=== PATIENT | female | born 1990 | race Caucasian/White ===

== ENCOUNTER 2022-12-01 02:26 | Emergency (ER) | payer MEDICAID, SELFPAY ==
[2022-12-01 02:40] VITALS: BP 114/78; PULSE 86; RESP 18; TEMP 36.6; O2SAT 99
--- NOTE | 2022-12-01 03:06 | ED.GENADULT ---
HPI - General Adult General Chief complaint: Vaginal Bleeding Stated complaint: Vaginal bleeding. Time Seen by Provider: 12/01/22 02:40 Source: patient and design cell engineer Mode of arrival: ambulatory History of Present Illness HPI narrative: 31-year-old female 3 para 2 with 2 prior C-sections presents to the emergency department for evaluation of vaginal bleeding. She believes herself to be about 6 weeks , has not had a regular menstrual cycle since her Nexplanon was removed in September. Took a test 1 month ago that was positive. Has a very mild amount of lower uterine cramping, very light vaginal bleeding. No blood clots, no passed tissue. Has not taken any medication to help with her symptoms. No dysuria, no fever. No prior history of miscarriages, no use of anticoagulants. Denies trauma or injury. Past medical history notable for 2 prior C-sections, 1 in [place], 1 from 2019 that is reviewed in our records. Blood type B positive. ROS notable for the gynecological symptoms only, otherwise denies times 12 systems. Related Data Home Medications Medication Instructions Recorded Confirmed docosahexaenoic acid 200 mg 200 mg PO DAILY 12/01/22 12/01/22 capsule ( DHA) Allergies Allergy/AdvReac Type Severity Reaction Status Date / Time No Known Drug Allergies Allergy Verified 09/24/22 14:47 PFSH PFSH Surgical History History of 2 sections ?Z98.891 - History of uterine scar from previous surgery (ICD-10) Family History Mother Diabetes Social History Narrative: Homemaker, 2 children. Smoking Status: Never smoker Do you use any of these nicotine containing products: None How often do you have a drink containing alcohol: never AUDIT-C Alcohol total score: 0 Non-prescribed substance use: denies use Little interest or pleasure in doing things: not at all Feeling down, depressed, or hopeless: not at all Exam Const: Vital Signs, click to edit/add: Vital Signs - 24 hr 12/01/22 02:40 12/01/22 03:47 Temperature 97.9 F Pulse Rate [Right Pulse Oximeter] 86 70 Respiratory Rate 18 16 Blood Pressure [Le ft Upper Arm] 114/78 116/76 Pulse Oximetry 99 99 Oxygen Delivery Me thod Room Air Room Air Documenting provider has reviewed patient's vital signs: yes Common normals: no apparent distress General appearance: cooperative, comfortable and well kempt HENMT: Common normals: normocephalic and head/scalp atraumatic Head and scalp: normocephalic and atraumatic Mouth: oral and palatal mucosa normal Eye: Common normals: conjunctivae normal General eye: normal appearance of both eyes Conjunctiva: conjunctiva(e) normal Resp: Common normals: normal respiratory effort, no use of accessory muscles and clear to auscultation bilaterally Effort & inspection: able to speak in complete sentences Auscultation: clear to auscultation bilaterally Cardio: Common normals: regular rate, regular rhythm, S1 normal heart sound, S2 normal heart sound and no murmurs Rate: regular rate Rhythm: regular rhythm Heart sounds: S1 normal and S2 normal GI: Common normals: Normal to inspection, nondistended, normoactive bowel sounds present, soft to palpation, non-tender, no hepatosplenomegaly and no masses Palpation: soft and no hepatosplenomegaly : Other: Normal external genitalia. Cervix multiparous in appearance but closed, scant amount of very lightly blood-tinged mucus, no active bleeding. Extremity: Common normals: normal to inspection and no pedal edema Psych: Appearance: well kempt Activity/motor behavior: appropriate eye contact Mood and affect: euthymic mood Course Course Hospital Course: No signs of cortical hemorrhage. Differential diagnosis including normal , implantation bleeding, STI, miscarriage, threatened miscarriage, among others. Patient has upcoming OB appointment in 9 days. Blood type B positive. Would not require RhoGAM. Bedside ultrasound used to attempt to locate an intrauterine . There is a significant amount of scar tissue that makes this difficult to see, I do see what appears to be a gestational sac within the low of the uterus but cannot determine a pole. Body habitus also makes this a bit difficult. Recommended checking a quant level. If it is above 1500 a really should be able to see contents better than will order a formal ultrasound. If below 1500, since she has no peritoneal signs, no heavy bleeding or severe pain, can arrange outpatient serial HCG and/or ultrasound. Reevaluation(s) Time of Reevaluation #1: 04:29 Reevaluation #1: Patient remains asymptomatic, brief period of cramping prior to presentation to ED has resolved. No further bleeding. Discussed hCG level, nice and high, this is not fully reassuring. Reminded her that this cannot rule out miscarriage. She will need a formal ultrasound performed. The information services tech would need to be called in from home, it takes about an hour to do the scan and another hour to get the results, this would likely take about 2-3 more hours here tonight. She agrees that she can go home and will come back of her symptoms worsen and she can arrange the ultrasound outpatient. I agree that this is perfectly safe and reasonable in her case. She will call her Ob provider in the morning and arrange outpatient ultrasound. The provider can choose to do serial hCG levels based on the findings at their discretion. Patient verbalizes understanding and agreement and understanding of alarm symptoms that were extensively reviewed with use of design cell engineer over the phone. Vital Signs Vital signs: Initial Vital Signs Temperature 97.9 F 12/01/22 02:40 Temperature Source Temporal Artery Scan 12/01/22 02:40 Pulse Rate 86 12/01/22 02:40 Pulse Rhythm Regular 12/01/22 02:40 Respiratory Rate 18 12/01/22 02:40 Blood Pressure 114/78 12/01/22 02:40 Blood Pressure Mean 90 12/01/22 02:40 Blood Pressure Position Sitting 12/01/22 02:40 Pulse Oximetry 99 12/01/22 02:40 Oxygen Delivery Method Room Air 12/01/22 02:40 Vital Signs Temperature 97.9 F 12/01/22 02:40 Pulse Rate 86 12/01/22 02:40 Respiratory Rate 18 12/01/22 02:40 Blood Pressure 114/78 12/01/22 02:40 Pulse Oximetry 99 12/01/22 02:40 Oxygen Delivery Method Room Air 12/01/22 02:40 Temperature 97.9 F 12/01/22 02:40 Pulse Rate 70 12/01/22 03:47 Respiratory Rate 16 12/01/22 03:47 Blood Pressure 116/76 12/01/22 03:47 Pulse Oximetry 99 12/01/22 03:47 Oxygen Delivery Method Room Air 12/01/22 03:47 Medical Decision Making Lab Data Lab results reviewed: Yes I reviewed the patient's lab results Lab results narrative: Blood type B positive from prior records. Nice and high hCG level. Labs: Lab Results 12/01/22 Range/Units 03:15 Hgb 11.9 L (12.0-16.0) gm/dL HCG, Quant 47060.00 mIU/mL Discharge Plan Discharge Clinical Impression: Threatened Patient Disposition: Home, Self-Care Condition: Stable Instructions: Threatened Miscarriage (ED) Additional Instructions: As we discussed, there are no signs of dangerous bleeding here in the emergency department. Your hormone levels are nice and high, your cervix is closed. These are all somewhat reassuring. As we discussed, we would need to do a formal ultrasound in order to see the better. I was not able to adequately see things on the bedside ultrasound tonight. As we discussed, we do not have an information services tech in-house overnight. Together, you agreed that you would not want to wait for her to be called in from home, have the test and wait an additional hour for it to be read. I agree. You are not having any severe pain or symptoms that would be worrisome for an ectopic . Remember the warning symptoms of severe bleeding, severe pain that would warrant coming back to the emergency department. Call your Ob provider in the morning and let her know that you are seen for bleeding in the emergency room. My recommendation is that they arrange an outpatient ultrasound and consider doing repeat blood work based on the ultrasound findings. Your Ob provider will make the final decisions regarding the next steps in her management. It is certainly reasonable to not wait several more hours for this ultrasound tonight. [place] comentamos, no hay signos de sangrado peligroso aqu? en el departamento de emergencias. Fay niveles de hormonas del embarazo son agradables y altos, daly americo uterino est? cerrado. Todos estos son algo tranquilizadores. [place] comentamos, necesitar?pardeep hacer navi ecograf?a formal para poder brandon mejor el embarazo. No pude brandon adecuadamente las cosas en el ultrasonido de la cama esta noche. [place] comentamos, no tenemos un t?cnico de ultrasonido interno de la noche a la ma?destini. Juntos acordaron que no querr?an esperar a que la llamaran de daly casa, hacerse la prueba y esperar navi hora m?s para que la leyeran. Estoy de acuerdo. No tiene mary kate?n dolor intenso o s?ntomas que ser?an preocupantes para un embarazo ect?angi.Recuerde los s?ntomas de advertencia de sangrado intenso, dolor intenso que justificar?a regresar al departamento de emergencias. Llame a daly obstetra por la ma?destini y d?gale que lo atienden por sangrado en la ankit de emergencias. Mi recomendaci?n es que organicen navi ecograf?a ambulatoria y consideren repetir los an?lisis de carol en funci?n de los hallazgos de la ecograf?a. Daly proveedor de obstetricia monica? las decisiones finales con respecto a los pr?ximos pasos en daly manejo. Ciertamente es razonable no esperar varias horas m?s para esta ecograf?a esta noche. Activity Level: No Restrictions Discharge Diet: Regular Prescriptions: No Action DHA 200 mg capsule 200 mg PO DAILY Follow Up/Referrals: Provider,Not a Local [Referring] - Stand Alone Forms: [facility] Info Instructions
[2022-12-01 03:22] LABS: Hemoglobin* 11.9 gm/dL (12.0-16.0)
[2022-12-01 03:47] VITALS: BP 116/76; PULSE 70; RESP 16; O2SAT 99
[2022-12-01 04:34] VITALS: BP 113/71; PULSE 66; RESP 18; O2SAT 100
== END 2022-12-01 04:35 | disposition home or self-care (01) ==
PROVIDERS: Emergency Provider Family Medicine; PCP Physician Assistant
DX: O20.0 Threatened abortion (principal)
CPT/HCPCS: 36415; 84702; 85018; 99282; 99283

== ENCOUNTER 2022-12-02 10:06 | Outpatient (CLI) | payer MEDICAID, SELFPAY ==
--- NOTE | 2022-12-02 10:15 | CRLHL7_ITS ---
For Patients: As a result of the Century Cures Act, medical imaging exams and procedure reports are released immediately into your electronic medical record. You may view this report before your referring provider. If you have questions, please contact your health care provider. INDICATION: 31 year-old female. The last menstrual period is not known. First trimester bleeding and cramping. Threatened . First trimester scan, establish dates. COMPARISON: None. TECHNIQUE: Real-time espino-scale imaging of the pelvis was performed. FINDINGS: Sonographic imaging demonstrates a single living intrauterine gestation. The embryo demonstrates a regular cardiac rate measuring 112 beats per minute. The embryo`s crown-rump length measurement of 0.4 cm corresponds to a gestational age of 6 weeks 1 day with a sonographic due date of July 27, 2022. There is a normal-appearing yolk sac measuring 2 mm. There are no gross abnormalities noted within the embryo at this early state of development. The placenta has not yet developed. The gestational sac has a normal appearance and there is no evidence of a perigestational hemorrhage. Specifically there is no evidence for subchorionic hemorrhage. The amount of fluid within the sac appears appropriate for gestational age. The cervix is closed. The myometrium appears normal. The ovaries are of normal size. The right ovary measures 2.9 x 2.2 x 2.8 cm. The right ovary contains a small corpus luteum cyst of measuring 1.8 x 1.4 x 1.6 cm. The left ovary measures 2.5 x 1.5 x 1.7 cm. There are no suspicious fluid collections noted in the cul-de-sac. IMPRESSION: Normal first trimester OB ultrasound exam. Gestational age calculated at 6 weeks 1 day with a sonographic due date of July 27, 2022. No evidence for subchorionic hemorrhage. Dictated by German Goodman MD @ 12/02/2022 11:13:23 AM (Electronically Signed)
== END 2022-12-02 10:07 | disposition home or self-care (01) ==
LOC: US 10:07
PROVIDERS: Visit Provider Registered Nurse
DX: O20.0 Threatened abortion (principal)
CPT/HCPCS: 76817; T1013

== ENCOUNTER 2022-12-02 12:21 | Outpatient (CLI) | payer MEDICAID, SELFPAY ==
[2022-12-02 17:51] LABS: Chlamydia DNA Amplified* NOT DETECTED (No Detected); GC DNA Amplified* NOT DETECTED (No Detected)
== END 2022-12-02 12:22 | disposition home or self-care (01) ==
PROVIDERS: Visit Provider Registered Nurse
DX: O20.9 Hemorrhage in early pregnancy, unspecified (principal)
CPT/HCPCS: 86592; 86703; 86762; 86787; 86803; 86850; 86900; 86901; 87086; 87340; 87491; 87591

== ENCOUNTER 2022-12-10 12:54 | Outpatient (CLI) | payer MEDICAID, SELFPAY ==
--- NOTE | 2022-12-10 13:00 | CRLHL7_ITS ---
For Patients: As a result of the Century Cures Act, medical imaging exams and procedure reports are released immediately into your electronic medical record. You may view this report before your referring provider. If you have questions, please contact your health care provider. INDICATION: Follow up viability COMPARISON: 12/02/2022 TECHNIQUE: Real-time espino-scale imaging of the pelvis was performed. FINDINGS: Sonographic imaging demonstrates a single living intrauterine gestation. The embryo demonstrates a regular cardiac rate measuring 149 beats per minute. The embryo`s crown-rump length measurement of 1.4 cm corresponds to a gestational age of 7 weeks 5 days with a sonographic due date of 07/24/2022. There is a normal-appearing yolk sac. There are no gross abnormalities noted within the embryo at this early state of development. The gestational sac has a normal appearance. There is no evidence of a perigestational hemorrhage. The amount of fluid within the sac appears appropriate for gestational age. The cervix is closed. The myometrium appears normal. Normal left ovary. A hypoechoic corpus luteal cyst right ovary measuring 3.3 cm. There are no suspicious fluid collections noted in the cul-de-sac. IMPRESSION: Single living intrauterine with sonographic gestational age 7 weeks 5 days and sonographic due date 07/24/2022. Dictated by Ezra Sidhu MD @ 12/10/2022 2:21:36 PM (Electronically Signed)
== END 2022-12-10 12:55 | disposition home or self-care (01) ==
LOC: US 12:55
PROVIDERS: Visit Provider Physician Assistant
DX: Z34.91 Encounter for supervision of normal pregnancy, unspecified, first trimester (principal); Z3A.01 Less than 8 weeks gestation of pregnancy
CPT/HCPCS: 76817; T1013

== ENCOUNTER 2023-03-10 07:12 | Outpatient (CLI) | payer MEDICAID, SELFPAY ==
--- NOTE | 2023-03-10 07:15 | CRLHL7_ITS ---
For Patients: As a result of the Century Cures Act, medical imaging exams and procedure reports are released immediately into your electronic medical record. You may view this report before your referring provider. If you have questions, please contact your health care provider. INDICATION: Evaluate anatomy. COMPARISON: 12/10/2022 TECHNIQUE: Real time espino scale imaging of the fetus was performed as well as color Doppler analysis of the umbilical vessels. FINDINGS: Sonographic imaging demonstrates a single living intrauterine gestation. Fetus demonstrates a regular cardiac rate of 148 beats per minute. Fetus has a variable position. The placenta lies fundal posterior without evidence of placenta previa. The edge of the placenta is located 9.1 cm from the internal cervical os. Amniotic fluid volume appears normal. Single deepest vertical pocket: 6.2 cm. The cervix is closed and measures 3.5 cm in length. The composite ultrasound gestational age is calculated at 20 weeks 6 days with an estimated sonographic due date of 07/22/2023. The estimated weight is 379 grams which lies at the 82nd %. The following biometric measurements were obtained: Biparietal diameter: 5.0 cm/21 weeks 1 day 87th% Head circumference: 18.1 cm/20 weeks 4 days 61st% Abdominal circumference: 16.0 cm/21 weeks 1 day 75th% Femur length: 3.4 cm/20 weeks 3 days 56th% The HC/AC ratio measures: 1.13 range (1.06-1.25) On anatomic survey, there is a normal appearance of the cerebral ventricles, cavum septi pellucidi, cisterna magna and cerebellum. The nose, lips, and facial profile appear normal. The cervical, thoracic and lumbar spine are well visualized and appear normal. There is a normal four-chamber heart view and the left and right ventricular outflow tracts appear normal. The diaphragm and stomach appear normal. The kidneys and bladder also appear normal. There is a normal three-vessel cord and cord insertion site. The four extremities appear normal. IMPRESSION: Normal OB ultrasound exam with concordance of clinical and sonographic dating. No intrinsic abnormalities noted on anatomic survey. Dictated by Ezra Sidhu MD @ 03/10/2023 10:10:38 AM (Electronically Signed)
== END 2023-03-10 07:13 | disposition home or self-care (01) ==
PROVIDERS: Visit Provider Physician Assistant
DX: Z34.92 Encounter for supervision of normal pregnancy, unspecified, second trimester (principal); Z3A.20 20 weeks gestation of pregnancy
CPT/HCPCS: 76805; T1013

== ENCOUNTER 2023-05-05 12:29 | Outpatient (CLI) | payer MEDICAID, SELFPAY | END 2023-05-05 12:30 | disposition home or self-care (01) | LOC: NFLDREF 05-09 06:11 | PROVIDERS: Visit Provider Obstetrics & Gynecology | DX: Z34.90 Encounter for supervision of normal pregnancy, unspecified, unspecified trimester (principal) | CPT/HCPCS: 86592 ==

== ENCOUNTER 2023-06-01 10:00 | Outpatient (CLI) | payer MEDICAID, SELFPAY ==
--- NOTE | 2023-06-01 15:00 | PM.ANPROEV ---
PFSH PFS Medical History History of abnormal cervical Pap smear ?Z87.42 - Personal history of other diseases of the female genital tract (ICD-10) Surgical History History of 2 sections ?Z98.891 - History of uterine scar from previous surgery (ICD-10) Family History Mother Diabetes Social History Narrative: Homemaker, 2 children. Smoking Status: Never smoker Do you use any of these nicotine containing products: None How often do you have a drink containing alcohol: never AUDIT-C Alcohol total score: 0 Non-prescribed substance use: denies use Little interest or pleasure in doing things: not at all Feeling down, depressed, or hopeless: not at all Meds Home Medications and Allergies Home Medications Medication Instructions Recorded Confirmed Type docosahexaenoic acid 200 mg 200 mg PO DAILY 12/01/22 06/01/23 History capsule ( DHA) Allergies Allergy/AdvReac Type Severity Reaction Status Date / Time No Known Drug Allergies Allergy Verified 06/01/23 11:41 Focused Exam Airway Mallampti: II TM distance: <3 FB Other Findings Other Findings: landmarks difficult to palpate Assessment and Plan Assessment and plan (1) Obesity: Status: Acute (2) : Status: Acute Plan Third . No issues as of yet. Discussed spinal anesthetic and TAPS. No questions. No contraindication to delivery at this time
== END 2023-06-01 10:01 | disposition home or self-care (01) ==
PROVIDERS: Visit Provider Anesthesiology
DX: O99.213 Obesity complicating pregnancy, third trimester (principal); Z3A.32 32 weeks gestation of pregnancy
CPT/HCPCS: T1013

== ENCOUNTER 2023-06-01 10:18 | Outpatient (CLI) | payer MEDICAID, SELFPAY ==
--- NOTE | 2023-06-01 10:45 | CRLHL7_ITS ---
For Patients: As a result of the Century Cures Act, medical imaging exams and procedure reports are released immediately into your electronic medical record. You may view this report before your referring provider. If you have questions, please contact your health care provider. OB ULTRASOUND FOLLOWUP GROWTH 06/01/2023 JOANA by LMP: 07/27/2023. JOANA by GA: 32 w, 0d. INDICATION: Growth check due to obesity in . COMPARISON: 03/10/2023. CERVIX: Not visualized. POSITIONING: Vertex. AMNIOTIC FLUID: 5.8 cm. PLACENTA: Technique: Transabdominal. PLACENTA POSITION: Fundal. DOPPLER: heart rate: 152 bpm. Biometry: BPD: 7.8 cm. 31 w, 3d, 24 percent. HC: 29.3 cm. 32 w, 2 d, 21 percent. AC: 31.0 cm. 34 w, 6 d, >97 percent. FL: 6.0 cm. 31 w, 0 d, 15 percent. EFW: 2148 g. Weight: 4 lbs, 12 oz. age by this US: 32 w, 3 d. JOANA by this US: 07/24/2023. Percentile by JOANA: 79 percent. IMPRESSION: Single live intrauterine gestation at 32 weeks 3 days. JOANA 07/24/2023. Estimated weight is 2148 grams which lies at the 78th percentile. Sabine Galeano M.D. Diagnostic/Breast Radiologist [email or web address] Transcribed: 12:33 pm DW/Dictated by: Sabine Galeano MD @ 06/03/2023 11:32:00 AM (Electronically Signed)
== END 2023-06-01 10:19 | disposition home or self-care (01) ==
LOC: US 10:19
PROVIDERS: Visit Provider Obstetrics & Gynecology
DX: Z34.93 Encounter for supervision of normal pregnancy, unspecified, third trimester (principal); Z3A.32 32 weeks gestation of pregnancy
CPT/HCPCS: 76816; T1013

== ENCOUNTER 2023-06-15 12:10 | Outpatient (CLI) | payer MEDICAID, SELFPAY | END 2023-06-15 12:11 | disposition home or self-care (01) | LOC: NFLDREF 06-23 10:32 | PROVIDERS: Visit Provider Physician Assistant | DX: Z34.93 Encounter for supervision of normal pregnancy, unspecified, third trimester (principal); Z3A.34 34 weeks gestation of pregnancy | CPT/HCPCS: 82728 ==

== ENCOUNTER 2023-07-01 13:57 | Outpatient (CLI) | payer MEDICAID, SELFPAY ==
[2023-07-02 13:18] LABS: Strep B DNA Probe Negative (Negative)
[2023-07-02 23:52] LABS: Strep B Susceptibility Needed? No
== END 2023-07-01 13:58 | disposition home or self-care (01) ==
LOC: NFLDREF 13:57
PROVIDERS: Visit Provider Obstetrics & Gynecology
DX: Z34.93 Encounter for supervision of normal pregnancy, unspecified, third trimester (principal); Z3A.36 36 weeks gestation of pregnancy
CPT/HCPCS: 87081; 87653

== ENCOUNTER 2023-07-22 05:29 | Inpatient (IN) | payer MEDICAID, SELFPAY ==
[2023-07-22] VITALS (32 sets, daily range): BP systolic 88–137; BP diastolic 54–78; PULSE 44–80; RESP 16–20; TEMP 36.3–36.8; O2SAT 95–99; BMI 40.5
[2023-07-22] MEDS: LACTATED RINGERS 1000 ML 1,000 ML 500 ML IV (05:48)
[2023-07-22 05:54] LABS: Hemoglobin* 11.3 gm/dL (12.0-16.0)
--- NOTE | 2023-07-22 06:47 | W.PM.LDBA ---
Subjective History of Present Illness Narrative: Patient is being admitted to Labor and Delivery for repeat delivery. She is a 32 year old at 39 2/7 weeks gestation. Her full history and physical was dictated by Dr. HAMMOND on 07/09/23. Please see this for details. Specific Issues/Plans MD RTCS and tubal ligation-bilateral salpingectomy, requested 07/22/23 with CGM H&P by CGM on 07/09/23, needs heart and lungs at her 38th week visit-completed on 07/14/23 1. Obesity, BMI 39.1 -Hemoglobin A1c: 5.2% -Growth US at 32 weeks ordered: EFW 78%, AC >97% -Consider weekly testing starting at 36 weeks - orders place 06/15/23 -Anesthesia consult: 06/01/23 2. History of x2. Indication for the 1st was that baby got stuck and then last she had a failed TOLAC, arrest of descent. -Repeat and she desires tubal ligation: scheduled for:07/22/23 -Will need Federal consent signed: signed on 04/06/23 -She has vertical midline infraumbilical and Pfannenstiel. Will be using Pfannenstiel for this next . Flu shot: 04/06/23 TDAP: 05/19/23 Covid:05/05/23 RSV: 06/15/23 OB - Problem Based A/P Additional Plan (1) Previous section complicating : Status: Acute (2) : Status: Acute (3) Obesity: Status: Acute Plan Repeat section and bilateral salpingectomy. OB Result Labs Labs: Hgb today: 11.3mg/dL OB Exam Physical Exam Vital signs: Pulse BP 80 102/59 L 07/22/23 05:54 07/22/23 05:54 Detailed Labor and Delivery Exam Patient Gravid: Yes Fetus (Single) Amniotic Membrane Status: intact Heart Rate Baseline: 130 Monitor Accelerations: Present Monitor Decelerations: None Skilled Nursing Variability: Moderate (6-25)
[2023-07-22] MEDS: LACTATED RINGERS 1000 ML 1,000 ML 125 ML IV ×2 (07:40→11:53)
[2023-07-22] MEDS: CEFAZOLIN 2 GM INJ IVP (07:41)
[2023-07-22] MEDS: miSOPROStoL 800 MCG/4 TABLET PR (07:57)
--- NOTE | 2023-07-22 09:49 | P.OBPRC_ITS ---
OB Delivery Proc Additional Procedures Tubal Ligation at the time of : Yes Other: No Procedure Date of procedure: 07/22/23 Pre-op diagnosis: Previous section x2, desiring repeat, satisfied parity Post-op diagnosis: same Procedure Done: Global Will [facility] bill your pro fee for this procedure?: Yes Blood Loss Measurement Type: QBL (533mL) Bakri Used: No Urine Output Comment: Clear urine Surgeon: Patti Elias MD Video Game Script Writer: Anil Crenshaw Anesthesia Type: Spinal Findings: FINDINGS: Live-born female , cephalic presentation, Apgars 8 and 9 at 1 and 5 minutes respectively. weight 9 pounds 1 oz. Normal appearing uterus, tubes, and ovaries. Dense adhesions between fascia, rectus muscles, omentum, anterior peritoneum, lower uterine segment, bladder. Procedure Name: Repeat Low Transverse Section, Lysis of Adhesion, Bilateral Salpingecto my Procedure Description: PROCEDURE: After obtaining informed consent, the patient was taken to the operating room where spinal anesthesia was obtained and found to be adequate. She was prepared and draped in the normal sterile fashion in the dorsal supine position with a leftward tilt. A Pfannenstiel skin incision was made with a scalpel along the line of the patient's previous Pfannenstiel scar. This incision was carried down to the underlying layer of fascia with the scalpel. The fascia was incised in the midline and the incision extended laterally. The superior aspect of the fascial incision were grasped with Félix clamps, elevated and the underlying rectus muscles dissected off sharply and with electrocautery. This dissection took an increased amount of time given the dense adhesions. The rectus muscles were then in the midline. The adhesions between the bladder and lower uterine segment were taken down sharply with Metzenbaum scissors. The Stanton O retractor was then placed into the incision. The lower uterine segment was then incised in a transverse fashion with the scalpel. Upon entry into the uterus, clear amniotic fluid was noted. The uterine incision was extended cephalo caudally with blunt finger fractionation. The infant's head was delivered atraumatically, followed by the remainder of the infant's body. The nose and mouth were suctioned with the bulb suction. The cord was doubly clamped and cut, and the was handed off the field to [facility] for evaluation. The placenta was delivered spontaneously with umbilical cord traction and fundal massage. The uterus was cleared of all clots and debris. The uterine incision was reapproximated in a running locking fashion with a 0 Vicryl suture. The lower uterine segment was so thin that I was unable to make a second row on the hysterotomy and utilized Chromic 2-0 to oversaw raw edges noted to be bleeding in multiple figure of 8. This achieved hemostasis. The uterus was very boggy, but was noted not to be bleeding excessively. Uterine atony treated with IV Oxytocin, 1 dose of IM Methergine and 800mcg of rectal Cytotec. Small bleeding vessels from adhesion release site between lower uterine segment and bladder reflection. A figure of 8 with Chromic 2-0 was placed at one spot that was bleeding more profusely, hemostasis secured. Humphrey was also utilized at this are for further hemostasis. At this time I also asked for 1g of TXA to be given. The uterus was then exteriorized. Both fallopian tubes were identified to their fimbrial ends. Attention was 1st turned to the right fallopian tube which was elevated in its midsection and fimbrial end with 2 [place] clamps, the mesosalpinx was then clamped, coagulated and cut in a progressive manner up to cornual end utilizing handheld LigaSure device. Hemostasis secured. Same procedure was performed on the left side. Hemostasis secured and fallopian tubes sent to pathology. The uterus was returned to the abdomen. The gutters were inspected and cleared of blood clots. All instruments and retractors were removed. The anterior peritoneum was reapproximated in a running fashion with a 3-0 Vicryl suture. Bleeding noted to be more persistent and coming from intraperitoneum. The Vicryl suture was released and omental adhesion to the anterior abdominal wall was noted to have a bleeding vessel, decision made to release adhesion and remove omentum with bleeding vessel. Utilizing handheld LigaSure device the omentum was clamped, coagulated and cut. Hemostasis secured. There was bleeding identified coming from the right rectus muscle perforating vessels, and this was coagulated with interrupted stitches of Vicryl 3-0. Hemostasis secured. The subfascial tissues were carefully inspected and hemostasis assured. The fascia was reapproximated in a running fashion with a looped 0 PDS suture. The subcutaneous tissues were copiously irrigated. Hemostasis was assured. The subcutaneous fat layer was reapproximated with interrupted sutures of 3-0 Vicryl in multiple layers. The skin was closed in a subcuticular fashion with 4-0 Monocryl. Silver dressing applied and to be left in place for 1 week. The patient tolerated the procedure well. Sponge, lap, needle, and instrument counts were reported as correct x2. The patient was taken to the recovery room, awake, and in stable condition. She did receive 3 grams of IV Ancef preoperatively. Complications: None Pathology: specimen obtained, sent to pathology (Fallopian tubes) Surgery Debrief Performed: Yes Condition: stable Disposition: floor
--- NOTE | 2023-07-22 09:56 | P.NB_ITS ---
Nerve Block Nerve Block Time Seen by Provider: 09:44 Date Seen: 07/22/23 Type of block requested by surgeon for post-operative analgesia: TAP Side: bilateral Time out performed: Yes Verification of patient name: Yes Verification of date of : Yes Site marking: not applicable Name of person performing procedure: Padma Continuous monitoring Was continuous monitoring of O2 sat, B/P, monitoring manager, recorded every 15 minutes?: Yes Procedure Checklist: sterile prep and needles Ultrasound guided. Images saved: Yes Medications given in 5ml increments after negative aspiration: Marcaine %: 0.25 mL: 30 Needle gauge: 20 and Exparel mL: 10 Needle gauge: 20 Patient tolerated procedure well: Yes Block Charges Block Charge (with Pro Fee): TAP Bilateral Use of Ultrasound Machine for Block: Yes- US Guidance/pain block
--- NOTE | 2023-07-22 09:58 | W.ANESCHARGE ---
Anesthesia Charges Start Date/Time Anesthesia Start Date: 07/22/23 Anesthesia Start Time: 07:12 Stop Date/Time Anesthesia Stop Date: 07/22/23 Anesthesia Stop Time: 09:53
[2023-07-22] MEDS: SODIUM CHLORIDE 0.9 % (FLUSH) 10 ML SYRINGE IVF (15:31)
[2023-07-22] MEDS: KETOROLAC 30 MG/ML inj IVP ×2 (15:31→21:52)
[2023-07-22] MEDS: ENOXAPARIN 40 MG/0.4 ML INJ SUBCUT (21:51)
[2023-07-23] VITALS (12 sets, daily range): BP systolic 86–105; BP diastolic 61–71; PULSE 78–81; RESP 16–18; TEMP 36.6–36.9; O2SAT 95–98
[2023-07-23] MEDS: ACETAMINOPHEN 500 MG TABLET 1000 MG PO ×4 (00:11→18:00)
[2023-07-23] MEDS: KETOROLAC 30 MG/ML inj IVP ×3 (03:51→15:29)
--- NOTE | 2023-07-23 07:56 | PM.OBPNVD1 ---
Documented by User: Renetta Cash 07/23/23 08:11 OB - PN:Subj Subjective Date Seen: 07/23/23 Narrative: Eryn is a 32 y.o. who was admitted to [facility] for repeat C-S @ 39.2 wk. She had an uncomplicated with Bilateral Tubal Ligation.?She was awake in bed and reports feeling well.Pain is well controlled with current medications. ?She has no new complaints. ?She is breast feeding and supplementing with donor milk as her is not latching well.? Vitals have been stable.? She has remained afebrile.? Has a good appetite, is tolerating a general diet. ?She is voiding without difficulty.? She is passing gas? She is ambulating and denies any dizziness.? Has small amount of rubra lochia. OB - PN: Obj Exam Physical Exam: Vital signs: Temp Pulse Resp BP Pulse Ox O2 Del Method 97.9 F 81 16 94/61 95 Room Air 07/23/23 07:34 07/23/23 07:34 07/23/23 07:34 07/23/23 07:34 07/23/23 07:34 07/23/23 05:00 Narrative: GENERAL APPEARANCE:? normal affect, alert, no distress MOOD:? appropriate CHEST:? clear to auscultation HEART:? regular rate and rhythm ABDOMEN:? soft, non-tender the uterine is firm, midline and is appropriate for the stage of recovery. EXTREMITIES:? Bilateral lower extremity edema Incision: Silver dressing, clean and intact Urinary Catheter Management: Urethral: Cath placed during this visit: yes, but has since been removed by the nurse Reason for continuing: surgical procedure Insertion date: 07/22/23 Insertion time: 07:30 Removal date: 07/22/23 Removal time: 22:15 OB - PN: Obj Data Labs Labs: Laboratory Results - last 24 hr 07/23/23 06:12 Hgb 9.0 L OB - PN: A/P Delivery Assessment and Plan (1) Encounter for care and examination of mother immediately after delivery: Status: Acute (2) Lactating mother: Status: Acute (3) Acute blood loss anemia: Status: Acute Plan day: 1 Plan: routine care Comments: Routine Postop care May see as desired Anemia- Iron every other day started Anticipated Discharge tomorrow or following Documented by User: Genny Maynard CNM 07/23/23 21:16 OB - PN: Obj Exam Urinary Catheter Management: Urethral: Cath placed during this visit: yes, but has since been removed by the nurse OB - PN: A/P Delivery Assessment and Plan (1) Encounter for care and examination of mother immediately after delivery: Status: Acute (2) Lactating mother: Status: Acute (3) Acute blood loss anemia: Status: Acute Plan Comments: Routine Postop care May see as desired Anemia- Iron every other day started Anticipated Discharge tomorrow or following I,?Genny Maynard APRN, CNM, was present for visit and have reviewed and agree with documentation by the Certified Nurse Midwifery Student.
[2023-07-23] MEDS: DOCUSATE SODIUM 100 MG CAPSULE PO (09:35)
[2023-07-23] MEDS: FERROUS SULFATE 325 MG TABLET PO (09:35)
[2023-07-23] MEDS: IBUPROFEN 600 MG TABLET PO (23:28)
[2023-07-23] MEDS: ENOXAPARIN 40 MG/0.4 ML INJ SUBCUT (23:29)
[2023-07-24] MEDS: ACETAMINOPHEN 500 MG TABLET 1000 MG PO (03:46)
[2023-07-24 07:46] VITALS: BP 104/71; PULSE 78; RESP 15; TEMP 36.8; O2SAT 96
[2023-07-24] MEDS: DOCUSATE SODIUM 100 MG CAPSULE PO (07:54)
[2023-07-24] MEDS: IBUPROFEN 600 MG TABLET PO (07:54)
--- NOTE | 2023-07-24 08:34 | P.DS_ITS ---
DS: Providers Provider Time Seen by Provider: 09:51 Date Seen: 07/24/23 Date of admission: 07/22/23 05:29 Primary care physician: Not a Local Provider Admitting Clinician: Tabitha Elias MD Consults: 07/22/23 06:00 Consult to Warehousing Technician [CONS] Routine Comment: Reason for Consult:: PT Requests Adv Dir Info Attending Physician on discharge: Tabitha Elias MD Date of Discharge: 07/24/23 DS: Diagnosis Discharge Diagnosis (1) Acute blood loss anemia: Status: Acute (2) Lactating mother: Status: Acute (3) Encounter for care and examination of mother immediately after delivery: Status: Acute (4) Obesity: Status: Acute Exam Narrative: Exam Narrative: Physical exam: General: No acute distress Psych: Alert and oriented x4, full affect HEENT: Normocephalic, atraumatic Neck: No cervical adenopathy, no thyromegaly Heart: Regular rate and rhythm, no murmur rub or gallop Lungs: Clear to auscultation bilaterally Abdomen: Normoactive bowel sounds, soft, minimal tenderness, no rebound, or guarding Incision: Appropriately tender to palpation. Intact silver dressing Skin: No lesions or rashes Breasts: Deferred Lower extremities: No edema or erythema Pelvic exam: scant blood on pad Const: Vital Signs, click to edit/add: Vital Signs - 24 hr 07/23/23 15:37 07/23/23 23:35 07/24/23 07:46 Temperature 98.2 F 98.5 F 98.2 F Pulse Rate [Pulse Oximeter] 78 78 78 Respiratory Rate 16 18 15 Blood Pressure [Ri ght Arm] 103/70 105/71 104/71 Pulse Oximetry 98 98 96 Oxygen Delivery Me thod Room Air Room Air Room Air OB - DS: Summary Hospital Course Hospital Course: The patient is a 32 year old G 3 P 1999 at 39.2 weeks gestation that was admitted to the Center on 07/22/23 for repeat section. She had an uncomplicated delivery. She delivered a viable female infant. She is breast feeding. the patient has done well. Overnight patient had no complaints. Her pain is well controlled on oral medication. She is tolerating a regular diet. She has passed flatus. She is ambulating without difficulty. Lochia is scant. She is urinating without atkinson. Patient denies chest pain, SOB, n/v, headache, RUQ pain, vision changes, dizziness. Time spent discussing smoking cessation with patient: 3 to 10 minutes Peripartum Data Procedures: Procedures Operation Date: 07/22/23 07:15 Actual Procedure Side Surgeon p Repeat Section, Bilateral Tubal Ligation Bilateral Tabitha Elias MD [place] Infant Gender: Female Time Spent with Patient Time attestation: Total time spent providing and/or coordinating discharge services: Discharge Plan Discharge Disposition: Home, Self-Care Date of Admission: 07/22/23 05:29 Attending Physician on Admission: Tabitha Elias Attending Provider on Discharge: Katharina Quintanilla Primary Care Provider: Provider,Not a Local Condition: Stable Anticipated Discharge Date/Time: 07/24/23 09:44 Discharge Medications: New acetaminophen 500 mg Tablet 1,000 mg PO Q6H PRN (Reason: Pain) 30 Days Qty: 60 0RF docusate sodium 100 mg Capsule 100 mg PO DAILY 30 Days Qty: 30 0RF ibuprofen 600 mg Tablet 600 mg PO Q6H PRN (Reason: Pain) 30 Days Qty: 60 0RF Lanolin (HPA) 100 % Cream 1 applic topical Q1H PRN60 Days Qty: 21 0RF simethicone 80 mg Tablet,Chewable 80 - 160 mg PO Q4H PRN (Reason: Gas) 30 Days Qty: 60 0RF oxycodone 5 mg Tablet 5 - 10 mg PO Q4H PRN (Reason: Pain) 14 Days Qty: 20 0RF Continued DHA 200 mg capsule 200 mg PO DAILY Changed ferrous sulfate 325 mg (65 mg iron) tablet 325 mg PO QMWF Qty: 60 2RF Discharge Orders: Discharge Order (Routine); Ordered 07/24/23 Ordered By: Katharina Quintanilla Patient Education: (DC) Additional Instructions: POSTOPERATIVE INSTRUCTIONS ACTIVITY No heavy lifting/pushing/pulling for 4-6 weeks. Do not lift anything more than about 10-15 lbs (such as laundry, groceries, children, pets), vacuum, push heavy doors or grocery carts, etc. You may climb stairs as tolerated. Do not put anything in the vagina for 6 weeks after surgery unless otherwise instructed by your doctor (including tampons, douching, sexual intercourse, etc). No driving for about 2 weeks after surgery, while you are taking narcotic pain medication, or until you feel that you are ready. Practice checking your blind spot and stepping hard on the brake. Avoid sitting or lying in bed for more than 2 hours at a time while you are awake to reduce your risk of blood clots. You may return to work when directed by your physician. Please contact your doctor if you need any return to work letters or medical leave paperwork to be completed. WOUND CARE You will have one large incision on your abdomen. There will be dissolvable stitches under your skin that do not need to be removed. You will have your silver dressing removed at day 7. Shower daily after surgery. Clean your incision with mild antibacterial soap and water. Pat your incision dry with a clean towel. No tub baths until wound is completely healed. Wash your hands frequently, especially before touching your incision, changing any dressings, after using the restroom, and before eating. PAIN MANAGEMENT Take your oral pain medication as needed. You should be taking Ibuprofen 600mg every 6 hours with 1 gram of Tylenol every 6 hours. You can take these together every six hours or alternate them every 3 hours. You should then take the oxycodone as needed if you have breakthrough pain on top of the Tylenol and Ibuprofen. Some pain medications can cause constipation so you should take a stool softener (i.e. colace) while you are on these medications. You may also take milk of magnesia or Miralax for constipation. WHAT TO EXPECT AT HOME Recovery from surgery is generally 4-6 weeks, but sometimes longer for more strenuous activity. It is normal to be very tired during this time. It is normal to have some drainage or a small amount of vaginal bleeding after surgery which may last up to 6 weeks. You may go home with a atkinson catheter in your bladder. You will need to follow up for a nurse visit in 7-10 days for removal. You will most likely experience gas pain, abdominal swelling, or shoulder pain for 24-72 hours after surgery. A warm shower, heating pad, and/or walking may help. WHEN TO CALL YOUR DOCTOR : Fever (>100.4?F or 38.0?C) or chills. Incision problems such as redness, warmth, swelling, or foul smelling drainage. Severe nausea or persistent vomiting. Bright red vaginal bleeding (soaking >1 pad/hour) or foul smelling vaginal drainage. Severe pain not relieved with pain medication. Pain and swelling in your legs, especially if it is only on one side and not the other. Pain with urination, cloudy urine, or foul smelling urine. Or if you have any other problems or questions. CALL 911 OR GO TO THE EMERGENCY ROOM IF YOU HAVE: Any shortness of breath, difficulty breathing, or chest pain. Follow Up Appointments: Provider,Not a Local [Primary Care Provider] - Forms: [facility] Info Instructions
== END 2023-07-24 12:20 | disposition home or self-care (01) | DRG 784 ==
PROVIDERS: Admitting Provider Obstetrics & Gynecology; Visit Provider Obstetrics & Gynecology
PROC: 10D00Z1 Extraction of Products of Conception, Low, Open Approach (ICD-10-PCS; CPT 59514; principal; 2023-07-22 07:15)
DX: O34.211 Maternal care for low transverse scar from previous cesarean delivery (principal); D62 Acute posthemorrhagic anemia; O72.1 Other immediate postpartum hemorrhage; O99.02 Anemia complicating childbirth; G89.18 Other acute postprocedural pain; O99.214 Obesity complicating childbirth; Z30.2 Encounter for sterilization; O99.892 Other specified diseases and conditions complicating childbirth; N73.6 Female pelvic peritoneal adhesions (postinfective); Z3A.39 39 weeks gestation of pregnancy; Z37.0 Single live birth
CPT/HCPCS: 01961; 36415; 64488; 76942; 85018; 86850; 86900; 86901; 88302; T1013; A9270; C9290; J0665; J0690; J1100; J1650; J1885; J2274; J2371; J2405; J2590; J3010; J7120